=== PATIENT | female | born 1935 | race Caucasian/White ===

== ENCOUNTER 2017-03-26 06:25 | Day surgery (SDC) | payer MEDICARE ==
[2017-03-26] MEDS ORDERED: hydrALAZINE HCL 20 MG/1 ML VIAL IV ONE (06:26)
[2017-03-26] MEDS ORDERED: IV LACTATED RINGERS SOLUTION 1,000 ML BAG IV ONE (06:26)
[2017-03-26] MEDS ORDERED: FLURBIPROFEN 0.03% OPHT DROP 2.5 ML BOTTLE ONE (06:47)
[2017-03-26] MEDS ORDERED: TROPICAMIDE 1% OPHT DROP 3 ML BOTTLE ONE (06:48)
[2017-03-26] MEDS ORDERED: CYCLOPENTOLATE 1% OPHT DROP 2 ML BOTTLE ONE (06:48)
[2017-03-26] MEDS ORDERED: PHENYLEPHRINE 2.5% OPHT DROP 2 ML BOTTLE ONE (06:48)
[2017-03-26] MEDS ORDERED: CIPROFLOXACIN 0.3% OPHT DROP 2.5 ML BOTTLE ONE (06:48)
[2017-03-26] MEDS ORDERED: MOXIFLOXACIN HCL 3 ML OPHT DROPS ONE (06:53)
[2017-03-26] MEDS ORDERED: TETRACAINE HCL 0.5% OPHT DROP 2 ML BOTTLE ONE (06:53)
[2017-03-26] MEDS ORDERED: LIDOCAINE-MPF 2% 5 ML VIAL ONE (06:53)
[2017-03-26] MEDS ORDERED: TIMOLOL MALEATE 0.5% OPHT DROP 5 ML BOTTLE ONE (06:53)
[2017-03-26] MEDS ORDERED: NEO/POLYMYX B/DEXAME OPHT OINT 3.5 GM TUBE ONE (06:53)
[2017-03-26] MEDS ORDERED: ACETYLCHOLINE CHLORIDE 1% OPHT 1 EA KIT ONE (06:54)
[2017-03-26] MEDS ORDERED: LIDOCAINE HCL-MPF 1% 5 ML VIAL ONE (06:54)
[2017-03-26] MEDS ORDERED: BUPIVACAINE PF 0.5% 30 ML VIAL ONE (06:54)
[2017-03-26] MEDS ORDERED: EPINEPHRINE 1 MG/1 ML AMP ONE (06:54)
[2017-03-26] MEDS ORDERED: BALANCED SALT IRRIG SOLN COMB2 15 ML IRRIG.SOLN ONE (06:54)
[2017-03-26] MEDS ORDERED: HYALURONATE SODIUM 12.8 MG/0.8 ML DISP.SYRIN ONE (06:55)
[2017-03-26] MEDS ORDERED: HYALURONATE SODIUM 8.5 MG/0.85 ML DISP.SYRIN ONE (06:55)
[2017-03-26] MEDS ORDERED: HYALURONIDASE,OVINE 200 UNITS/ML VIAL ONE (06:55)
[2017-03-26] MEDS ORDERED: BALANCED SALT IRRIG SOLN COMB1 500 ML, GENTAMICIN SULFATE INJ 4 MG, EPINEPHRINE-PF 1:10... IO ONE ×3 (07:00)
[2017-03-26 07:29] LABS: BASOPHILS # (AUTO) 0.1 K/uL (0.0-8.0); BASOPHILS % (AUTO) 0.7 % (0.0-2.0); EOSINOPHILS # (AUTO) 0.1 K/uL (0.0-0.7); EOSINOPHILS % (AUTO) 1.5 % (0.0-7.0); HEMATOCRIT 44.3 % (31.2-41.9); HEMOGLOBIN 14.7 g/dL (10.9-14.3); LYMPHOCYTES # (AUTO) 2.4 K/uL (20.0-40.0); LYMPHOCYTES % (AUTO) 26.4 % (20.5-51.5); MEAN CORPUSCULAR HEMOGLOBIN 29.7 uug (24.7-32.8); MEAN CORPUSCULAR HGB CONC 33 g/dL (32.3-35.6); MEAN CORPUSCULAR VOLUME 89.4 fL (75.5-95.3); MONOCYTES # (AUTO) 0.7 K/uL (2.0-10.0); MONOCYTES % (AUTO) 8.1 % (0.0-11.0); NEUTROPHILS # (AUTO) 5.7 K/uL (1.8-8.9); NEUTROPHILS % (AUTO) 63.3 % (38.5-71.5); PLATELET COUNT (AUTO) 237 K/uL (179-408); RED BLOOD CELL COUNT(AUTO) 4.96 MIL/uL (3.63-4.92)
[2017-03-26 07:31] LABS: CARBON DIOXIDE 25 mmol/L (21-32); CHLORIDE 110 mmol/L (98-107); CREATININE 0.7 mg/dL (0.6-1.3); GLUCOSE 108 mg/dL (74-106); POTASSIUM 4.1 mmol/L (3.5-5.1); UREA NITROGEN, BLOOD 21 mg/dL (7-18)
[2017-03-26] MEDS ORDERED: FENTANYL CITRATE 100 MCG/2 ML AMPUL ONE (08:31)
[2017-03-26] MEDS ORDERED: BALANCED SALT IRRIG SOLN COMB1 500 ML ONE (09:05)
== END 2017-03-26 10:30 | disposition home or self-care (01) ==
LOC: DS 06:25
PROVIDERS: ATTEND Ophthalmology
DX: H25.89 Other age-related cataract (principal); I10 Essential (primary) hypertension; E78.5 Hyperlipidemia, unspecified; Z79.899 Other long term (current) drug therapy; M53.87 Other specified dorsopathies, lumbosacral region
CPT/HCPCS: 36415; 66982; 71045; 80048; 85025; 85730; 93005; A4663; J0171 ×2; J0360; J1580; J3010; J3471; J3490 ×3; J7120 ×2; J7321 ×2; V2632